=== PATIENT | female | born 1970 | race Hispanic/Latino ===

== ENCOUNTER 2017-11-06 06:37 | Emergency (ER) | payer MEDICAID ==
[2017-11-06 06:48] VITALS: BP 111/76; PULSE 68; TEMP 98.1; O2SAT 98
[2017-11-06 07:00] VITALS: RESP 16
[2017-11-06] MEDS ORDERED: Lidocaine 5% Patch TD STA (07:22)
[2017-11-06] MEDS ORDERED: Lidocaine 5% Patch TD ONE (07:37)
--- NOTE | 2017-11-06 08:09 | ED PDOC ---
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 Denies injury or trauma. Taking meloxicam with minimal relief. Believes work may be worsening her pain w positioning of arms and cutting hair. Denies fever, rash, weakness or numbness although notes some paresthesias to arms b/l. Past Medical History Reviewed: Historical Data, Nursing Documentation, Vital Signs Vital Signs: Last Vital Signs Temp 98.1 F 11/06/17 06:58 Pulse 68 11/06/17 06:58 Resp 16 11/06/17 06:58 BP 111/76 11/06/17 06:58 Pulse Ox 98 11/06/17 06:58 - Medical History PMH: Anxiety, Gastritis, Gastrointestinal Ulcer, Migraine, Chronic Pain (neck pain, h/o herniated discs to neck) Denies: Asthma, Diabetes - Surgical History Surgical History: Appendectomy - Family History Family History: States: Unknown Family Hx - Social History Current smoker - smoking cessation education provided: No - Home Medications Home Medications: Ambulatory Orders Medication Instructions Recorded Naproxen 500 mg PO BID PRN #30 tablet 08/29/15 Cyclobenzaprine [Cyclobenzaprine 10 mg PO Q8 PRN #9 tab 11/06/17 HCl] Naproxen [Naprosyn] 500 mg PO BID PRN #14 tablet 11/06/17 - Allergies Allergies/Adverse Reactions: Allergies Allergy/AdvReac Type Severity Reaction Status Date / Time Penicillins Allergy RASH Verified 08/28/15 21:51 Review of Systems Constitutional: Negative for: Fever, Chills Eyes: Negative for: Vision Change ENT: Negative for: Ear Pain, Throat Pain Cardiovascular: Negative for: Chest Pain Respiratory: Negative for: Shortness of Breath Gastrointestinal: Negative for: Abdominal Pain Genitourinary Female: Negative for: Dysuria Musculoskeletal: Positive for: Neck Pain, Shoulder Pain, Arm Pain, Back Pain. Negative for: Hand Pain, Leg Pain, Foot Pain Skin: Negative for: Rash, Lesions Neurological: Negative for: Weakness, Change in Speech, Seizures, Headache, Dizziness Psych: Negative for: Depression Physical Exam - Reviewed Nursing Documentation Reviewed: Yes Vital Signs Reviewed: Yes - Physical Exam Appears: Positive for: Non-toxic Head Exam: Positive for: ATRAUMATIC, NORMAL INSPECTION, NORMOCEPHALIC Skin: Positive for: Normal Color, Warm, DRY Eye Exam: Positive for: EOMI, Normal appearance, PERRL ENT: Positive for: Normal ENT Inspection Neck: Positive for: Supple, Decreased ROM (+ tender trapezius b/l and upper back , shoulders w ROM), Trachea Midline, Pain On Movement Of Neck Cardiovascular/Chest: Positive for: Regular Rate, Rhythm Respiratory: Positive for: CNT, Normal Breath Sounds Gastrointestinal/Abdominal: Positive for: Normal Exam, Soft Back: Positive for: Normal Inspection Extremity: Positive for: Normal ROM Neurologic/Psych: Positive for: Alert, Oriented, Gait (normal). Negative for: Motor/Sensory Deficits, Facial Droop - ECG O2 Sat by Pulse Oximetry: 98 Medical Decision Making Medical Decision Making: symptoms appear ergonomically related given profession and location / quality of symptoms. To obtain CT Cspine r/o severe spinal stenosis and initiate analgesics, muscle relaxants, lidoderm patch. Accession No. : [id number] Patient Name / ID : KARISSA VILLAREAL / [id number] Exam Date : 11/06/2017 08:42:10 ( Approved ) Study Comment : Sex / Age : F / 47Y Creator : Virgilio Gao MD Dictator : Virgilio Gao MD Appeals Coordinator : Director Cardiology : Virgilio Gao MD Approver2 : Report Date : 11/06/2017 09:07:38 My Comment : Date of service: 11/06/2017 PROCEDURE: CT Cervical Spine without contrast HISTORY: neck pain radicular symptoms COMPARISON: None available. TECHNIQUE: Axial computed tomography images were obtained of the cervical spine without the use of intravenous contrast. Coronal and sagittal reformatted images were created and reviewed. Radiation dose: Total exam DLP = 265.27 mGy-cm. This CT exam was performed using one or more of the following dose reduction techniques: Automated exposure control, adjustment of the mA and/or kV according to patient size, and/or use of iterative reconstruction technique. FINDINGS: VERTEBRAE: Normal curvature. No fracture or spondylolisthesis identified. No destructive bony lesion identified. Multilevel cervical spondylosis appreciated, seen worst at C5-6. Mild multilevel facet joint degenerative arthropathy concentrated at the inferior levels symmetrically. The odontoid process appears intact. C1-2 articulation is normal as well as the craniocervical junction. DISCS/SPINAL CANAL/NEURAL FORAMINA: Moderate left C6 neural foraminal stenosis asymmetric disc osteophyte complex resulting in limited encroaching left lateral recess without generalized central canal stenosis. No additional significant neural foraminal stenosis appreciated throughout the cervical spine. PARASPINAL SOFT TISSUES: Unremarkable. OTHER FINDINGS: None. IMPRESSION: 1. No acute fracture or spondylolisthesis is demonstrated. 2. Degenerative left C6 root foraminal stenosis, moderate. No bony central canal stenosis appreciated overall. results explained in [place] via [employer] rob followup PMD Dr Arcos, Rx NSAID and muscle relaxant, states somewhat improved in ED, has normal gait and intact neurologic status. Disposition - Clinical Impression Clinical Impression: Cervical strain, Radicular pain, Back disorder - Patient ED Disposition Is Patient to be Admitted: No Counseled Patient/Family Regarding: Studies Performed, Diagnosis, Need For Followup, Rx Given - Disposition Disposition: Routine/Home Disposition Time: 11:01 Condition: STABLE Forms: [employer] ([place])
--- NOTE | 2017-11-06 09:09 | CT ---
Date of service: 11/06/2017 PROCEDURE: CT Cervical Spine without contrast HISTORY: neck pain radicular symptoms COMPARISON: None available. TECHNIQUE: Axial computed tomography images were obtained of the cervical spine without the use of intravenous contrast. Coronal and sagittal reformatted images were created and reviewed. Radiation dose: Total exam DLP = 265.27 mGy-cm. This CT exam was performed using one or more of the following dose reduction techniques: Automated exposure control, adjustment of the mA and/or kV according to patient size, and/or use of iterative reconstruction technique. FINDINGS: VERTEBRAE: Normal curvature. No fracture or spondylolisthesis identified. No destructive bony lesion identified. Multilevel cervical spondylosis appreciated, seen worst at C5-6. Mild multilevel facet joint degenerative arthropathy concentrated at the inferior levels symmetrically. The odontoid process appears intact. C1-2 articulation is normal as well as the craniocervical junction. DISCS/SPINAL CANAL/NEURAL FORAMINA: Moderate left C6 neural foraminal stenosis asymmetric disc osteophyte complex resulting in limited encroaching left lateral recess without generalized central canal stenosis. No additional significant neural foraminal stenosis appreciated throughout the cervical spine. PARASPINAL SOFT TISSUES: Unremarkable. OTHER FINDINGS: None. IMPRESSION: 1. No acute fracture or spondylolisthesis is demonstrated. 2. Degenerative left C6 root foraminal stenosis, moderate. No bony central canal stenosis appreciated overall.
== END 2017-11-06 11:19 | disposition home or self-care (01) ==
LOC: H.ER 06:37
DX: S16.1XXA Strain of muscle, fascia and tendon at neck level, initial encounter (principal); X50.9XXA Other and unspecified overexertion or strenuous movements or postures, initial encounter; Y99.0 Civilian activity done for income or pay; G89.29 Other chronic pain; Z88.0 Allergy status to penicillin
CPT/HCPCS: 72125; 96372; 99284; J1885

== ENCOUNTER 2018-01-29 19:03 | Emergency (ER) | payer MEDICAID ==
[2018-01-29 19:33] VITALS: BP 123/79; PULSE 87; RESP 18; TEMP 98.2; O2SAT 100
[2018-01-29] MEDS ORDERED: Lidocaine 5% Patch TD STA (20:19)
[2018-01-29] MEDS ORDERED: Oxycodone/Acetaminophen 5/325 mg Tab PO STA (20:19)
[2018-01-29] MEDS ORDERED: Lidocaine 5% Patch TD ONE (20:34)
[2018-01-29] MEDS ORDERED: Oxycodone/Acetaminophen 5/325 mg Tab ONE (20:38)
[2018-01-29 20:46] LABS: SQUAMOUS EPITHIAL 1 /hpf (0-5); URINE BILIRUBIN NEGATIVE (NEGATIVE); URINE BLOOD NEGATIVE (NEGATIVE); URINE CLARITY SLIGHTY-CLOUDY (Clear); URINE COLOR YELLOW (YELLOW); URINE GLUCOSE (UA) NEG (Normal); URINE LEUKOCYTE ESTERASE NEG Leu/uL (Negative); URINE PROTEIN NEGATIVE (NEGATIVE); URINE UROBILINOGEN 0.2-1.0 mg/dL (0.2-1.0)
--- NOTE | 2018-01-29 20:52 | ED PDOC ---
HPI: Back Time Seen by Provider: 01/29/18 19:46 Chief Complaint (Nursing): Back Pain Chief Complaint (Provider): Back Pain History Per: Patient History/Exam Limitations: no limitations Onset/Duration Of Symptoms: Hrs, Sudden Onset Current Symptoms Are (Timing): Still Present Additional Complaint(s): Dionna Mo is a 47 year old female with a past medical history of gastritis, arthritis, and anxiety who is presenting to the ED for evaluation of sudden onset, non-radiating atraumatic back pain onset this afternoon. Patient states that we works as a [employer] Network[employer] and spends a lot of time on her feet. She also admits that she has a history of disc herniation in lower back and reports that this morning she was moving a heavy mattress but didnt feel pain until the afternoon. Patient states that she took naproxen without relief and adds that she has had a mild burning sensation upon urination for the past week. She denies any nausea, vomiting, hematuria, or abdominal pain. PMD: none provided Past Medical History Reviewed: Historical Data, Nursing Documentation, Vital Signs Vital Signs: Last Vital Signs Temp 98.2 F 01/29/18 19:30 Pulse 87 01/29/18 19:30 Resp 18 01/29/18 19:30 BP 123/79 01/29/18 19:30 Pulse Ox 100 01/29/18 19:30 - Medical History PMH: Anxiety, Arthritis, Gastritis, Gastrointestinal Ulcer, Kidney Stones, Migraine, Chronic Pain (neck pain, h/o herniated discs to neck) Denies: Asthma, Diabetes - Surgical History Surgical History: Appendectomy - Family History Family History: States: Unknown Family Hx - Social History Current smoker - smoking cessation education provided: Yes Alcohol: None Drugs: Denies - Home Medications Home Medications: Ambulatory Orders Medication Instructions Recorded Naproxen 500 mg PO BID PRN #30 tablet 08/29/15 Cyclobenzaprine [Cyclobenzaprine 10 mg PO Q8 PRN #9 tab 11/06/17 HCl] Naproxen [Naprosyn] 500 mg PO BID PRN #14 tablet 11/06/17 Meloxicam [Mobic] 7.5 mg PO DAILY PRN #10 tab 01/29/18 Methocarbamol [Robaxin] 500 mg PO TID PRN #15 tab 01/29/18 - Allergies Allergies/Adverse Reactions: Allergies Allergy/AdvReac Type Severity Reaction Status Date / Time Penicillins Allergy RASH Verified 01/29/18 19:30 Review of Systems ROS Statement: Except As Marked, All Systems Reviewed And Found Negative Gastrointestinal: Negative for: Nausea, Vomiting, Abdominal Pain Genitourinary Female: Positive for: Dysuria. Negative for: Incontinence, Hematuria Musculoskeletal: Positive for: Back Pain Physical Exam - Reviewed Nursing Documentation Reviewed: Yes Vital Signs Reviewed: Yes - Physical Exam Appears: Positive for: Non-toxic, In Acute Distress (mild painful) Head Exam: Positive for: ATRAUMATIC, NORMAL INSPECTION, NORMOCEPHALIC Skin: Positive for: Normal Color, Warm, DRY Gastrointestinal/Abdominal: Positive for: Normal Exam, Soft. Negative for: Tenderness Back: Positive for: Other (bilateral paralumbar tenderness). Negative for: L CVA Tenderness, R CVA Tenderness, Vertebral Tenderness Neurologic/Psych: Positive for: Alert, Oriented. Negative for: Motor/Sensory Deficits - ECG O2 Sat by Pulse Oximetry: 100 (RA) Pulse Ox Interpretation: Normal Medical Decision Making Medical Decision Making: Time: 20:22 Plan: --ED Urine --Flexeril 10 mg PO --Percocet 1 tab PO --Lidocaine --Urine culture --Urinalysis Patient was offered x-rays but she declined, stating she would rather follow up with her neurologist Dr. Lou. Scribe Attestation: Documented by Anushka Sears, acting as a scribe for Kris Cai PA-C. Provider Scribe Attestation: All medical record entries made by the Scribe were at my direction and personally dictated by me. I have reviewed the chart and agree that the record accurately reflects my personal performance of the history, physical exam, medical decision making, and the department course for this patient. I have also personally directed, reviewed, and agree with the discharge instructions and disposition. Disposition - Clinical Impression Clinical Impression: Low back pain - Patient ED Disposition Is Patient to be Admitted: No - Disposition Referrals: Shukri Cook MD [Medical Doctor] - Disposition: Routine/Home Disposition Time: 21:05 Condition: IMPROVED Additional Instructions: FOLLOW UP WITH DR. COOK FOR FURTHER EVALUATION WITHOUT FAIL DIONNA MO, thank you for letting us take care of you today. Your provider was Neil Tracy MD and you were treated for BACK PAIN. The emergency medical care you received today was directed at your acute symptoms. If you were prescribed any medication, please fill it and take as directed. It may take several days for your symptoms to resolve. Return to the Emergency Department if your symptoms worsen, do not improve, or if you have any other problems. Please contact your doctor or call one of the physicians/clinics you have been referred to that are listed on the Patient Visit Information form that is included in your discharge packet. Bring any paperwork you were given at discharge with you along with any medications you are taking to your follow up visit. Our treatment cannot replace ongoing medical care by a primary care provi anuel outside of the emergency department. Thank you for allowing the [facility] team to be part of your care today. If you had an X-Ray or CT scan: A Radiologist will review the ED reading if any change in treatment is needed we will contact you. If you had a blood, urine, or wound culture: It will take several days for the results, if any change in treatment is needed we will contact you. If you had an STI test: It will take 48 hours for the results. Please call after 1 week if you have not heard back. Prescriptions: Meloxicam [Mobic] 7.5 mg PO DAILY PRN #10 tab PRN Reason: Pain, Mild (1-3) Methocarbamol [Robaxin] 500 mg PO TID PRN #15 tab PRN Reason: Muscle Spasm Instructions: Low Back Pain (DC) Forms: [employer] ([place]ian), [facility] ED School/Work Excuse Print Language: SAMI
== END 2018-01-29 21:33 | disposition home or self-care (01) ==
LOC: H.ER 19:03
DX: M54.5 Low back pain (principal)